=== PATIENT | male | born 1955 | race Hispanic/Latino ===

== ENCOUNTER 2016-11-10 11:22 | Outpatient (CLI) | payer OTHER | END 2016-11-10 19:49 | disposition home or self-care (01) | LOC: RAD 11:22 | DX: J15.8 Pneumonia due to other specified bacteria (principal) ==

== ENCOUNTER 2017-11-24 07:55 | Outpatient (CLI) | payer OTHER | END 2017-11-24 22:13 | disposition home or self-care (01) | LOC: RAD 07:55 | DX: R91.8 Other nonspecific abnormal finding of lung field (principal); Z02.71 Encounter for disability determination ==